=== PATIENT | male | born 1950 | race Caucasian/White ===

== ENCOUNTER 2016-06-15 22:54 | Inpatient (IN) | payer OTHER ==
[~2016-06-15] VITALS: Ht 182.9 cm; Wt 47.5 kg
[~2016-06-15 22:54] MED LIST: 00186-0370-20 IH; ALBUTEROL SULFAT3 M3 IH; ALBUTEROL0.83 MG/ML IH; ALDACTONE 25MG25 M1 PO; BRILINTA90 MG PO; COLACE 100100 MG/CAP PO; CUTIVATE 60 ML60 ML NAS; DALIRESP500 MCG PO; EFFIENT10 MG PO; FERRO-TIME325 MG PO; FLONASE NASAL S16 GM NS; FOSAMAX 70MG TA70 MG PO; KLONOPIN 0.5MG0.5 MG PO; LASIX 20MG TABL20 MG PO; LIPITOR 80MG80 MG PO; MEGACE20 MG PO; NEXIUM 40MG40 MG PO; NITROSTAT0.4 MG/TAB SL; OSCAL 500 TAB500 MG PO; PRAVACHOL10 MG PO; PREDNISONE 5MG5 MG PO; PREDNISONE20 MG PO; PRINIVIL5 MG PO; PROAIR HFA0.09 MG/AC IH; REFRESH PLUS 00.4 M1 OU; RT SPIRIVA18 MCG IH; SODIUM BICARBO650 MG PO; TOPROL XL 25MG25 MG PO; TOPROL XL 50MG50 MG PO; TYLENOL 325MG325 MG PO; ULTRAM 50MG TAB50 MG PO; VITAMIN D32000 I1 PO; ZESTRIL 5MG5 MG PO; ZITHROMAX 250M250 MG PO; ZOFRAN ODT4 MG PO
[2016-06-15 23:38] VITALS: BP 134/79; PULSE 125; TEMP 97.5
[2016-06-16] MEDS ORDERED: NATURAL C500 MG PO (01:47)
[2016-06-16] MEDS ORDERED: DALIRESP500 MCG PO (01:49)
[2016-06-16] MEDS ORDERED: GAS RELIEF80 MG PO (01:50)
[2016-06-16] MEDS ORDERED: ZANTAC 150MG T150 MG PO (01:52)
[2016-06-16] MEDS ORDERED: AMOXICILLIN 8751 TAB PO (01:53)
[2016-06-16] MEDS ORDERED: PREDNISONE20 MG PO (01:54)
== END 2016-06-16 06:45 | disposition expired | DRG 189 ==
LOC: MEDICAL 22:54
DX: J96.02 Acute respiratory failure with hypercapnia (principal); J44.1 Chronic obstructive pulmonary disease with (acute) exacerbation; J96.01 Acute respiratory failure with hypoxia; Z66 Do not resuscitate; Z51.5 Encounter for palliative care; I10 Essential (primary) hypertension; E78.5 Hyperlipidemia, unspecified; Z87.891 Personal history of nicotine dependence
CPT/HCPCS: 99222-AI; 99238; J2060; J2270